=== PATIENT | male | born 1970 | race Caucasian/White ===

== ENCOUNTER 2021-06-27 17:53 | Emergency (ER) | payer SELFPAY ==
[~2021-06-27] VITALS: Ht 183 cm; Wt 84.0 kg
[2021-06-27 19:13] LABS: BASOPHILS # (AUTO) 0.1 10^3/uL (0.0-0.1); BASOPHILS % (AUTO) 1 % (0-10); EOSINOPHILS # (AUTO) 0.2 10^3/uL (0.0-0.3); EOSINOPHILS % (AUTO) 1 % (0-10); HEMATOCRIT 47 % (40-54); HEMOGLOBIN 15.6 g/dL (13.3-17.7); LYMPHOCYTES # (AUTO) 1.5 10^3/uL (1.0-4.0); LYMPHOCYTES % (AUTO) 10 % (12-44); MEAN CORPUSCULAR HEMOGLOBIN 32 pg (25-34); MEAN CORPUSCULAR HGB CONC 33 g/dL (32-36); MEAN CORPUSCULAR VOLUME 95 fL (80-99); MEAN PLATELET VOLUME 8.8 fL (9.0-12.2); MONOCYTES # (AUTO) 1.1 10^3/uL (0.0-1.0); MONOCYTES % (AUTO) 7 % (0-12); NEUTROPHILS # (AUTO) 12.5 10^3/uL (1.8-7.8); NEUTROPHILS % (AUTO) 81 % (42-75); PLATELET COUNT 251 10^3/uL (130-400); WHITE BLOOD COUNT 15.3 10^3/uL (4.3-11.0)
[2021-06-27] MEDS ORDERED: CEPH500T PO (19:15)
[2021-06-27] MEDS ORDERED: KETOROLAC 30 MG/ML VIAL IVP ONE (19:15)
[2021-06-27] MEDS ORDERED: cefTRIAXone 1 GM PRE-MIX 50 ML IV ONE (19:15)
--- NOTE | 2021-06-27 19:15 | ED Upper Extremity ---
General Chief Complaint: Upper Extremity Stated Complaint: R ARM SWELLING Nursing Triage Note: PT AMB TO FT 3 W C/O RIGHT FOREARM SWELLING/BURNING/REDNESS/PAIN SX LAST NIGHT. REPORTS HIS HAND FEELS LIKE PINS AND NEEDLES. A&OX4. Source: patient Exam Limitations: no limitations (BEV PEDRO APRN) History of Present Illness Date Seen by Provider: Jun 27, 2021 Time Seen by Provider: 19:10 Initial Comments To ER with reports of right forearm redness and pain that he noticed last night. No fevers or chills no known injury. He noticed this upon awakening this morning. 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 Onset: yesterday Severity: moderate Pain/Injury Location: right forearm Method of Injury: unknown Modifying Factors: Worse With Movement (BEV PEDRO APRN) Allergies and Home Medications Allergies Coded Allergies: Penicillins (Verified Allergy, Unknown, 06/27/21) Patient Home Medication List Home Medication List Reviewed: Yes (BEV PEDRO APRN) Cephalexin (Cephalexin) 500 Mg Tablet, 500 MG PO QID Prescribed by: BEV PEDRO on 06/27/211914 Review of Systems Constitutional: see HPI EENTM: see HPI Respiratory: no symptoms reported Cardiovascular: no symptoms reported Genitourinary: no symptoms reported Musculoskeletal: no symptoms reported Skin: no symptoms reported Psychiatric/Neurological: No Symptoms Reported (BEV PEDRO APRN) Past Wqwfyov-Ebaemx-Codcab Hx Patient Social History Tobacco Use?: Yes Tobacco type used: Cigarettes Smoking Status: Current Everyday Smoker Use of E-Cig and/or Vaping dev: No Substance use?: Yes Substance type: Marijuana Alcohol Use?: No (BEV PEDRO APRN) Immunizations Up To Date Influenza Vaccine Up-to-Date: No; Not Current First/Initial COVID19 Vaccinat: NONE Second COVID19 Vaccination Matteo: NONE Third COVID19 Vaccination Date: NONE COVID19 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 oz. kg; 25.00 BMI Method: General Appearance: WD/WN, no apparent distress HEENT: PERRL/EOMI, normal ENT inspection Respiratory: no respiratory distress, no accessory muscle use Gastrointestinal: normal bowel sounds, non tender Shoulder: normal inspection, non-tender Elbow/Forearm: Right (To the volar aspect of the mid right forearm is a 5 x 8 cm area of erythema and slight induration without fluctuance. To the center of this is a slightly darkened area. No fluctuance. That darkened area measures less than 1 cm in diameter. No necrosis at this point. There is lymphangitis that extends proximally up to the axilla. He denies any recent injections of the fresh track silva over the veins on the left arm would suggest otherwise.) Wrist: Yes normal inspection, Yes non-tender (BEV PEDRO APRN) Progress/Results/Core Measures Results/Orders Blood Pressure Mean: 103 Departure Impression Primary Impression: Cellulitis Additional Impression: Lymphangitis Disposition: 01 HOME, SELF-CARE Condition: Stable Departure-Patient Inst. Decision time for Depature: 19:13 (BEV PEDRO APRN) Patient Instructions: Cellulitis (Skin Infection), Adult (DC) Add. Discharge Instructions: 1. Return to ER for any fevers. Take the antibiotics as directed follow-up with your doctor as directed. If you do not have one a list has been provided for you. There is a [facility] in [place]. All discharge instructions reviewed with patient and/or family. Voiced under standing. Scripts Cephalexin (Cephalexin) 500 Mg Tablet 500 MG PO QID, #28 TAB 0 Refills Prov: BEV PEDRO APRN 06/27/21 ATTENDING PHYSICIAN NOTE: I WAS PHYSICALLY PRESENT ER PHYSICIAN WHEN THIS PATIENT WAS IN ER, BUT I WAS NOT INVOLVED IN ANY DECISION MAKING OR ANY CARE OF THIS PATIENT. (KIM FUENTES DO) BEV PEDRO APRN Jun 27, 2021 19:15 KIM FUENTES DO Jun 30, 2021 05:34
[2021-06-27 19:32] LABS: ALBUMIN 4.1 GM/DL (3.2-4.5); BILIRUBIN,TOTAL 0.6 MG/DL (0.1-1.0); CALCIUM 9.5 MG/DL (8.5-10.1); CREATININE SERUM 1.09 MG/DL (0.60-1.30); TOTAL PROTEIN 7.6 GM/DL (6.4-8.2)
[2021-06-27 20:10] VITALS: BP 132/82
[2021-06-27 20:16] LABS: ATYPICAL LYMPHOCYTES 1 %; EOSINOPHILS % (MANUAL) 1 %; LYMPHOCYTES % (MANUAL) 10 %; MONOCYTES % (MANUAL) 6 %; NEUTROPHILS % (MANUAL) 82 %; RBC MORPH NORMAL
== END 2021-06-27 20:10 | disposition home or self-care (01) ==
LOC: ER 17:56
DX: L03.113 Cellulitis of right upper limb (principal); F17.210 Nicotine dependence, cigarettes, uncomplicated
CPT/HCPCS: 36415; 80053; 85007; 85027; 86141

== ENCOUNTER 2021-08-30 22:14 | Emergency (ER) | payer SELFPAY ==
[~2021-08-30] VITALS: Ht 183 cm; Wt 84.0 kg
[~2021-08-30 22:14] MED LIST: CEPH500T PO
[2021-08-30] MEDS ORDERED: FAMOTIDINE 20MG/2ML IV (PEPCID) IV STA (22:36)
[2021-08-30] MEDS ORDERED: ONDANSETRON 4 MG/2 ML (SDV) Z0FRAN IVP ONE (22:45)
[2021-08-30] MEDS ORDERED: LACTATED RINGERS 1,000 ML IV ONE (22:45)
[2021-08-30] MEDS ORDERED: HYOSCYAMINE 0.125 MG (LEVSIN) TAB SL ONE (22:45)
[2021-08-30 22:55] LABS: BASOPHILS % (AUTO) 0 % (0-10); EOSINOPHILS # (AUTO) 0.4 10^3/uL (0.0-0.3); EOSINOPHILS % (AUTO) 3 % (0-10); HEMATOCRIT 47 % (40-54); HEMOGLOBIN 15.6 g/dL (13.3-17.7); LYMPHOCYTES # (AUTO) 2.2 10^3/uL (1.0-4.0); LYMPHOCYTES % (AUTO) 19 % (12-44); MEAN CORPUSCULAR HEMOGLOBIN 31 pg (25-34); MEAN CORPUSCULAR HGB CONC 34 g/dL (32-36); MEAN CORPUSCULAR VOLUME 92 fL (80-99); MEAN PLATELET VOLUME 9.2 fL (9.0-12.2); MONOCYTES # (AUTO) 1.4 10^3/uL (0.0-1.0); MONOCYTES % (AUTO) 12 % (0-12); NEUTROPHILS # (AUTO) 7.5 10^3/uL (1.8-7.8); NEUTROPHILS % (AUTO) 65 % (42-75); PLATELET COUNT 264 10^3/uL (130-400); WHITE BLOOD COUNT 11.6 10^3/uL (4.3-11.0)
[2021-08-30 23:05] LABS: ALBUMIN 4.5 GM/DL (3.2-4.5); POTASSIUM 3.4 MMOL/L (3.6-5.0)
[2021-08-30 23:06] LABS: CALCIUM 10.1 MG/DL (8.5-10.1)
[2021-08-30 23:08] LABS: TOTAL PROTEIN 7.5 GM/DL (6.4-8.2)
[2021-08-30 23:09] LABS: BILIRUBIN,TOTAL 0.7 MG/DL (0.1-1.0)
[2021-08-30 23:11] LABS: CREATININE SERUM 1.06 MG/DL (0.60-1.30)
--- NOTE | 2021-08-30 23:11 | ED Abdominal Pain ---
General Chief Complaint: Abdominal/GI Problems Stated Complaint: N/V, STOMACH CRAMPS Nursing Triage Note: c/o intermittant nausea x2 months, n/v/d, abd cramping x1 week Source of Information: Patient, Family Exam Limitations: No Limitations (KINGA EATON) History of Present Illness Date Seen by Provider: Aug 30, 2021 Time Seen by Provider: 22:29 Initial Comments Patient to the ER by private conveyance chief complaint of several months some intermittent indigestion and now last couple days she had progressively worsening intermittent cramping in his bilateral lower pelvis groins radiating to his testicles. He is having diarrhea and vomiting today. No fevers or chills. No shortness of air cough or sick contacts. He smokes about half a pack a day, last use of methamphetamines was 2 weeks ago and uses marijuana. He was having some abdominal cramping similar to this a few weeks ago and was taken by ambulance to [place] and was told he had some kind of a bacterial got infection but not given antibiotics nor was he set up for follow-up. Patient states he does not have a primary care doctor. Never had a colonoscopy. No known history of diverticulitis. He did have a history of a inguinal hernia repair was unsuccessful at [place]. No other abdominal surgeries. No blood in the stool. He did take some Pepto-Bismol without relief of symptoms. Last use of methamphetamine approximately 2 weeks ago. (KINGA EATON) Allergies and Home Medications Allergies Coded Allergies: Penicillins (Verified Allergy, Unknown, 06/27/21) Patient Home Medication List Home Medication List Reviewed: Yes (KINGA EATON) Cephalexin (Cephalexin) 500 Mg Tablet, 500 MG PO QID Prescribed by: BEV PEDRO on 06/27/211914 Hydrocodone/Acetaminophen (Hydrocodone-Acetamin 5-325 mg) 1 Each Tablet, 1 TAB PO Q6H PRN for PAIN-MODERATE (5-7) Prescribed by: DAMON FLOWERS on 08/31/21 162 Hyoscyamine Sulfate (Levsin-Sl) 0.125 Mg Tab.subl, 0.125 MG SL Q4H Prescribed by: BRISEIDA COVARRUBIAS on 08/31/212005 Ondansetron (Ondansetron Odt) 4 Mg Tab.rapdis, 4-8 MG PO Q6H PRN for NAUSEA/VOMITING Prescribed by: DAMON FLOWERS on 08/31/21 1627 Review of Systems Review of Systems Constitutional: No chills, No diaphoresis EENTM: No Blurred Vision, No Double Vision Respiratory: Denies Cough, Denies Shortness of Air Cardiovascular: Denies Chest Pain, Denies Lightheadedness Gastrointestinal: Abdominal Pain; Denies Constipated; Diarrhea Genitourinary: Denies Burning, Denies Discharge Musculoskeletal: No back pain, No joint swelling Skin: No pruritus, No rash Psychiatric/Neurological: Denies Depressed, Denies Headache (KINGA EATON) All Other Systems Reviewed Negative Unless Noted: Yes (KINGA EATON) Past Cganztc-Rvhkmm-Bwmuji Hx Patient Social History Tobacco Use?: Yes Tobacco type used: Cigarettes Substance use?: Yes Substance type: Marijuana Alcohol Use?: No Pt feels they are or have been: No (KINGA EATON) Immunizations Up To Date First/Initial COVID19 Vaccinat: NONE Second COVID19 Vaccination Matteo: NONE Third COVID19 Vaccination Date: NONE (KINGA EATON) Past Medical History Surgery/Hospitalization HX: t/a,appy, hernia, orthopedic, (KINGA EATON) Physical Exam Vital Signs Vital Signs - First Documented 08/30/21 08/31/21 22:20 01:52 Temp 36.6 Pulse 77 Resp 16 B/P (MAP) 124/93 (103) Pulse Ox 96 O2 Delivery Room Air (DAMON FLOWERS MD) Vital Signs Capillary Refill : Less Than 3 Seconds (KINGA EATON) Height/Weight/BMI Height: '" Weight: lbs. oz. kg; 25.00 BMI Method: General Appearance: WD/WN, no apparent distress HEENT: PERRL/EOMI, normal ENT inspection Neck: non-tender, full range of motion Respiratory: lungs clear, normal breath sounds, no respiratory distress, no accessory muscle use Cardiovascular: normal peripheral pulses, regular rate, rhythm, no edema Peripheral Pulses: 2+ Radial Pulses (R), 2+ Radial Pulses (L) Gastrointestinal: normal bowel sounds, soft, tenderness (All 4 quadrants to light touch) Extremities: non-tender, normal inspection, normal capillary refill Back: normal inspection, no CVA tenderness, no vertebral tenderness Neurologic/Psychiatric: alert, normal mood/affect, oriented x 3 Skin: normal color, warm/dry (KINGA EATON) Progress/Results/Core Measures Results/Orders Lab Results Laboratory Tests Test 08/30/21 22:41 Range/Units White Blood Count 11.6 H 4.3-11.0 10^3/uL Red Blood Count 5.04 4.30-5.52 10^6/uL Hemoglobin 15.6 13.3-17.7 g/dL Hematocrit 47 40-54 % Mean Corpuscular Volume 92 80-99 fL Mean Corpuscular Hemoglobin 31 25-34 pg Mean Corpuscular Hemoglobin Concent 34 32-36 g/dL Red Cell Distribution Width 13.2 10.0-14.5 % Platelet Count 264 130-400 10^3/uL Mean Platelet Volume 9.2 9.0-12.2 fL Immature Granulocyte % (Auto) 0 % Neutrophils (%) (Auto) 65 42-75 % Lymphocytes (%) (Auto) 19 12-44 % Monocytes (%) (Auto) 12 0-12 % Eosinophils (%) (Auto) 3 0-10 % Basophils (%) (Auto) 0 0-10 % Neutrophils # (Auto) 7.5 1.8-7.8 10^3/uL Lymphocytes # (Auto) 2.2 1.0-4.0 10^3/uL Monocytes # (Auto) 1.4 H 0.0-1.0 10^3/uL Eosinophils # (Auto) 0.4 H 0.0-0.3 10^3/uL Basophils # (Auto) 0.0 0.0-0.1 10^3/uL Immature Granulocyte # (Auto) 0.0 0.0-0.1 10^3/uL Sodium Level 140 135-145 MMOL/L Potassium Level 3.4 L 3.6-5.0 MMOL/L Chloride Level 102 98-107 MMOL/L Carbon Dioxide Level 28 21-32 MMOL/L Anion Gap 10 5-14 MMOL/L Blood Urea Nitrogen 18 7-18 MG/DL Creatinine 1.06 0.60-1.30 MG/DL Estimat Glomerular Filtration Rate 86 BUN/Creatinine Ratio 17 Glucose Level 109 H 70-105 MG/DL Calcium Level 10.1 8.5-10.1 MG/DL Corrected Calcium 9.7 8.5-10.1 MG/DL Total Bilirubin 0.7 0.1-1.0 MG/DL Aspartate Amino Transf (AST/SGOT) 29 5-34 U/L Alanine Aminotransferase (ALT/SGPT) 42 0-55 U/L Alkaline Phosphatase 77 40-136 U/L C-Reactive Protein High Sensitivity 0.41 0.00-0.50 MG/DL Total Protein 7.5 6.4-8.2 GM/DL Albumin 4.5 3.2-4.5 GM/DL Lipase 9 8-78 U/L (DAMON FLOWERS MD) Vital Signs/I&O 08/30/21 08/31/21 22:20 01:52 Temp 36.6 36.5 Pulse 77 68 Resp 16 18 B/P (MAP) 124/93 (103) 115/77 Pulse Ox 96 O2 Delivery Room Air Room Air 08/31/21 00:00 Intake Total 1000 ml Balance 1000 ml (DAMON FLOWERS MD) Blood Pressure Mean: 103 Progress Progress Note : Time: 00:39 Progress Note Levsin and IV antiacid did not seem to help. Dose of fentanyl has stopped his constant diarrhea and Zofran has helped with his nausea. CT reveals nonspecific enteritis/colitis. Based on his laboratory evidence it is likely viral. (KINGA EATON) Progress Note : Progress Note Nurse presented to me during shift that the pharmacy the medications were sent to is currently closed. I got into the chart to send the patient's medicines to [facility] (DAMON FLOWERS MD) Diagnostic Imaging Diagonstic Imaging: CT Plain Films/CT/US/NM/MRI: abdomen, pelvis Comments Minimally dilated small bowel as described above, possibly enteritis versus early or partial small bowel obstruction. Fluid in the colon through the level of the sigmoid colon, question a diarrheal illness. [facility], [place] NAME: TREY BASURTO Pallavi [facility] REC#: [id number] PT STATUS: DEP ER : 1970 PHYSICIAN: KINGA EATON MD ADMIT DATE: 08/30/21/ER Signed Date of Exam:03/26/22 CT ABDOMEN/PELVIS W EXAMINATION: CT abdomen and pelvis with intravenous contrast. TECHNIQUE: Multiple contiguous axial images were obtained through the abdomen and pelvis after the uneventful administration of intravenous contrast. All CT scans use one or more of the following dose optimizing techniques: automated exposure control, MA and/or KvP adjustment based on patient size and exam type or iterative reconstruction. HISTORY: Low abd pain COMPARISON: None available. FINDINGS: Limited views of the lower thorax are unremarkable. There are few tiny low attenuating liver lesions that are likely cysts but too small to characterize. There is no biliary ductal dilation. Gallbladder is normal. Pancreas is normal. Spleen is normal. Adrenal glands are normal. There are few tiny cysts in the left kidney. There is no hydronephrosis. Urinary bladder is normal. There are prominent fluid-filled loops of small bowel. No bowel wall thickening. The appendix is absent. There is a fat-containing right inguinal hernia. No free fluid or air. No abdominal or pelvic lymphadenopathy. Aorta is normal in caliber without aneurysm. There are no suspicious osseus lesions. IMPRESSION: 1. Prominent fluid-filled loops of small bowel, correlate for any evidence of gastroenteritis. There is no significant disagreement with the preliminary report. Dictated by: Dictated on workstation # [id number] Dict: 08/31/21 0643 Trans: 08/31/21 0942 ULICES [id number] Interpreted by: GENOVEVA GUERRERO MD Electronically signed by: GENOVEVA GUERRERO MD 08/31/21 0942 Reviewed: Reviewed by Me (KINGA EATON) Departure Impression Primary Impression: Enteritis Disposition: 01 HOME, SELF-CARE Condition: Stable Departure-Patient Inst. Decision time for Depature: 01:37 (KINGA EATON) Referrals: RISSA THOMPSON DO NO,LOCAL PHYSICIAN (PCP) Primary Care Physician Patient Instructions: Viral Gastroenteritis, Adult (DC), Diarrhea, Adult ED Add. Discharge Instructions: There is irritation of your small bowel and is most often is seen in the setting of a viral illness. Because you are having frequent recurrent bouts it is also possible you may have a small bowel obstruction that is coming and going. I would suggest you follow-up with Dr. Thompson by calling his office for an appointment next week. Zofran 1 to 2 tablets every 6 hours as needed for nausea or vomiting. Hydrocodone 1 tablet every 6 hours necessary for breakthrough pain. Tylenol and Motrin as necessary for pain. Antacids such as Tums, Maalox, Mylanta etc. as necessary for indigestion. Imodium 2 tablets followed by 1 tablet every 4 hours afterwards that you are still having loose, watery stools. Return to the ER for intractable symptoms such as intractable pain or dehydration. All discharge instructions reviewed with patient and/or family. Voiced understanding. Scripts Hydrocodone/Acetaminophen (Hydrocodone-Acetamin 5-325 mg) 1 Each Tablet 1 TAB PO Q6H PRN for PAIN-MODERATE (5-7), #12 TAB 0 Refills Prov: DAMON FLOWERS MD 08/31/21 Ondansetron (Ondansetron Odt) 4 Mg Tab.rapdis 4-8 MG PO Q6H PRN for NAUSEA/VOMITING, #20 TAB 0 Refills Prov: DAMON FLOWERS MD 08/31/21 Work/School Note: Work Release Form Date Seen in the Emergency Department: Aug 31, 2021 Return to Work: Sep 02, 2021 Restrictions: No Restrictions Copy Copies To 1: RISSA THOMPSON TITUS J Aug 30, 2021 23:11 DAMON FLOWERS MD Aug 31, 2021 16:28
[2021-08-30] MEDS ORDERED: fentaNYL INJ 100 MCG/2 ML AMP IVP ONE (23:15)
[2021-08-30] MEDS ORDERED: NS 100 ML (IVPB) BAG IV ONE (23:45)
[2021-08-30] MEDS ORDERED: CATHETER FLUSH 10 ML SYR IV PRN (23:45)
[2021-08-30] MEDS ORDERED: IOHEXOL 350 MG/ML 100 ML (OMNIPAQUE 350) VIAL IV ONE (23:45)
[2021-08-31] MEDS ORDERED: ONDA4TAB11 PO ×2 (01:39→16:27)
[2021-08-31] MEDS ORDERED: ACHD5005 PO ×2 (01:39→16:27)
[2021-08-31] MEDS ORDERED: RX-ONDANSETRON 4 MG ODT (ZOFRAN) PPK #4 PO STA (01:46)
[2021-08-31 01:52] VITALS: BP 115/77
--- NOTE | 2021-08-31 06:54 | Diagnostic Imaging Report ---
EXAMINATION: CT abdomen and pelvis with intravenous contrast. TECHNIQUE: Multiple contiguous axial images were obtained through the abdomen and pelvis after the uneventful administration of intravenous contrast. All CT scans use one or more of the following dose optimizing techniques: automated exposure control, MA and/or KvP adjustment based on patient size and exam type or iterative reconstruction. HISTORY: Low abd pain COMPARISON: None available. FINDINGS: Limited views of the lower thorax are unremarkable. There are few tiny low attenuating liver lesions that are likely cysts but too small to characterize. There is no biliary ductal dilation. Gallbladder is normal. Pancreas is normal. Spleen is normal. Adrenal glands are normal. There are few tiny cysts in the left kidney. There is no hydronephrosis. Urinary bladder is normal. There are prominent fluid-filled loops of small bowel. No bowel wall thickening. The appendix is absent. There is a fat-containing right inguinal hernia. No free fluid or air. No abdominal or pelvic lymphadenopathy. Aorta is normal in caliber without aneurysm. There are no suspicious osseus lesions. IMPRESSION: 1. Prominent fluid-filled loops of small bowel, correlate for any evidence of gastroenteritis. There is no significant disagreement with the preliminary report. Dictated by: Dictated on workstation # [id number]
[2021-08-31] MEDS ORDERED: HYOS0.1283 SL (20:06)
== END 2021-08-31 01:55 | disposition home or self-care (01) ==
LOC: EDUNIT# 22:14 → ER 22:16
DX: K52.9 Noninfective gastroenteritis and colitis, unspecified (principal); F17.210 Nicotine dependence, cigarettes, uncomplicated
CPT/HCPCS: 36415; 74177; 80053; 83690; 85025; 86141

== ENCOUNTER 2021-08-31 17:45 | Emergency (ER) | payer SELFPAY ==
[~2021-08-31] VITALS: Ht 182.2 cm; Wt 84.0 kg
[~2021-08-31 17:45] MED LIST changes: +ACHD5005 PO; +ONDA4TAB11 PO
[2021-08-31] MEDS ORDERED: FAMOTIDINE 20 MG (PEPCID) TABLET PO STA (18:17)
[2021-08-31] MEDS ORDERED: HYOSCYAMINE 0.125 MG (LEVSIN) TAB SL STA (18:17)
[2021-08-31] MEDS ORDERED: HYOSCYAMINE 0.125 MG (LEVSIN) TAB ONE (18:31)
--- NOTE | 2021-08-31 20:03 | ED GI ---
General Chief Complaint: Abdominal/GI Problems Stated Complaint: ABD PAIN Nursing Triage Note: TO ED PER W/C WITH C/O ABD PAIN. WAS SEEN IN ED LAST NIGHT AND DX WITH GASTRITIS . PATIENT CALLED EARLIER BECAUSE HE WANTED PAIN MED AND NAUSEA RX TRANSFER TO [facility] PATIENT REPORTS DID NOT PICK IT UP CAME HERE INSTEAD. History of Present Illness Date Seen by Provider: Aug 31, 2021 Time Seen by Provider: 18:25 Initial Comments Patient seen and evaluated. He reports epigastric pain that has been present for the last 2 to 3 days. In the past he would have symptoms like this about once a month, however now it is becoming weekly to daily. He was seen in this emergency department yesterday for similar symptoms and had a full work-up including lab and CTs which were all normal. He was given prescriptions however he has not picked those up. Timing/Duration: Intermittent Severity/Quality: Moderate Location: Epigastric Associated Symptoms: Denies Symptoms Allergies and Home Medications Allergies Coded Allergies: Penicillins (Verified Allergy, Unknown, 06/27/21) Patient Home Medication List Home Medication List Reviewed: Yes Cephalexin (Cephalexin) 500 Mg Tablet, 500 MG PO QID Prescribed by: BEV PEDRO on 06/27/211914 Hydrocodone/Acetaminophen (Hydrocodone-Acetamin 5-325 mg) 1 Each Tablet, 1 TAB PO Q6H PRN for PAIN-MODERATE (5-7) Prescribed by: DAMON FLOWERS on 08/31/211626 Hyoscyamine Sulfate (Levsin-Sl) 0.125 Mg Tab.subl, 0.125 MG SL Q4H Prescribed by: BRISEIDA COVARRUBIAS on 08/31/212005 Ondansetron (Ondansetron Odt) 4 Mg Tab.rapdis, 4-8 MG PO Q6H PRN for NAUSEA/VOMITING Prescribed by: DAMON FLOWERS on 08/31/211626 Review of Systems Review of Systems Constitutional: no symptoms reported, see HPI Gastrointestinal: See HPI, Abdominal Pain, Poor Appetite All Other Systems Reviewed Negative Unless Noted: Yes Past Ktjrtdt-Jgfcqx-Wmikah Hx Patient Social History Tobacco Use?: Yes Smoking Status: Current Everyday Smoker Substance use?: Yes Substance type: Marijuana Alcohol Use?: No Immunizations Up To Date First/Initial COVID19 Vaccinat: NONE Second COVID19 Vaccination Matteo: NONE Third COVID19 Vaccination Date: NONE Past Medical History Surgery/Hospitalization HX: t/a,appy, hernia, orthopedic, Family Medical History Reviewed Nursing Family Hx Physical Exam Vital Signs Vital Signs - First Documented 08/31/21 18:01 Temp 36.5 Pulse 88 Resp 18 B/P (MAP) 126/87 (100) Pulse Ox 97 O2 Delivery Room Air Capillary Refill : Less Than 3 Seconds Height/Weight/BMI Height: '" Weight: lbs. oz. kg; 25.00 BMI Method: General Appearance: WD/WN, no apparent distress Respiratory: chest non-tender, lungs clear, normal breath sounds Cardiovascular: normal peripheral pulses, regular rate, rhythm Gastrointestinal: normal bowel sounds, soft; No distended, No rebound; t enderness (Generalized); No mass Extremities: normal range of motion, non-tender, normal inspection, normal capillary refill Neurologic/Psychiatric: no motor/sensory deficits, alert, normal mood/affect, oriented x 3 Skin: normal color, warm/dry Progress/Results/Core Measures Results/Orders My Orders Orders - BRISEIDA COVARRUBIAS Famotidine Tablet (Pepcid Tablet) (08/31/21 18:17) Hyoscyamine Sl Tablet (Levsin Sl Tablet) (08/31/21 18:17) Hyoscyamine Sl Tablet (Levsin Sl Tablet) (08/31/21 18:31) Rx-Hyoscyamine Tab (Rx-Levsin Sl) (08/31/21 20:04) Vital Signs/I&O 08/31/21 08/31/21 18:01 20:16 Temp 36.5 36.5 Pulse 88 88 Resp 18 16 B/P (MAP) 126/87 (100) 122/85 Pulse Ox 97 92 O2 Delivery Room Air Room Air Blood Pressure Mean: 100 Progress Progress Note : Time: 18:25 Progress Note Patient seen and evaluated, will give Levsin and Pepcid and reevaluate. 1930 patient reports improvement in symptoms after medication. Discharge instructions and return precautions reviewed with the patient. Departure Impression Primary Impression: Enteritis Disposition: HOME, SELF-CARE Condition: Improved Departure-Patient Inst. Decision time for Depature: 19:30 Referrals: NO,LOCAL PHYSICIAN (PCP/Family) Primary Care Physician Patient Instructions: Viral Gastroenteritis, Adult (DC) Add. Discharge Instructions: Holmes diet as directed. Continue to take medications as prescribed. Schedule with [facility] to establish care. Consider scheduling with a surgeon to have a colonoscopy and EGD or capsule study. Return to the emergency department for new, urgent healthcare needs. Obtain the Pepcid 10 mg over the counter, take 1 twice daily. Obtain your prescriptions that were sent to the pharmacy yesterday. All discharge instructions reviewed with patient and/or family. Voiced understanding. Scripts Hyoscyamine Sulfate (Levsin-Sl) 0.125 Mg Tab.subl 0.125 MG SL Q4H, #20 TAB 0 Refills Prov: BRISEIDA COVARRUBIAS 08/31/21 BRISEIDA COVARRUBIAS Aug 31, 2021 20:03
[2021-08-31] MEDS ORDERED: RX-HYOSCYAMINE 0.125 MG SL (LEVSIN) PPK#6 SL STA (20:04)
[2021-08-31] MEDS ORDERED: HYOS0.1283 SL (20:06)
[2021-08-31 20:16] VITALS: BP 122/85
== END 2021-08-31 20:16 | disposition home or self-care (01) ==
LOC: EDUNIT# 17:45 → ER 17:46
DX: K52.9 Noninfective gastroenteritis and colitis, unspecified (principal); F17.290 Nicotine dependence, other tobacco product, uncomplicated
CPT/HCPCS: 99283

== ENCOUNTER 2021-12-26 17:51 | Emergency (ER) | payer SELFPAY ==
[~2021-12-26] VITALS: Ht 182.8 cm; Wt 83.9 kg
[~2021-12-26 17:51] MED LIST changes: +HYOS0.1283 SL
[2021-12-26 18:04] VITALS: BP 118/65
--- NOTE | 2021-12-26 18:31 | ED Integumentary General ---
General Chief Complaint: Skin/Wound Problems Stated Complaint: BILATERAL ARM SORES Nursing Triage Note: PT AMBULATORY TO ROOM. PT HAS SORE TO LEFT FOREARM AND SORES TO BILAT HANDS. PT STATES HE DOES NOT KNOW WHERE THEY CAME FROM. PT STATES HE NOTICED THEM 2 WEEKS AGO, TOOK SOME ANTIBIOTICS FROM A FAMILY MEMBER, BUT NOTICED THE SORE TO THE LEFT FOREARMS BECAME RED, HOT, AND SWOLLEN TODAY Source: patient Exam Limitations: no limitations History of Present Illness Date Seen by Provider: Dec 26, 2021 Time Seen by Provider: 18:17 Initial Comments Patient is a 51-year-old male who presents to the emergency department with a chief complaint of multiple "sores" to his bilateral forearms. 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 He noticed about a week ago a wound on his left forearm. He states it started draining in the last couple of days and subsequent to that multiple other areas on his hands and forearm have developed. He has never had anything like this before. He does not know if he has a history of staph infection. He is not a diabetic. He denies any fevers or chills. The wounds are not itchy. No other complaints of recent illness or injury. He does state that the wound has gotten larger, more tender and his forearm is little more swollen today than it has been in recent days. Timing/Duration: week, getting worse Severity: moderate Location: hands, extremities Possible Cause: no cause identified Associated Symptoms: edema Allergies and Home Medications Allergies Coded Allergies: Penicillins (Verified Allergy, Unknown, 06/27/21) Patient Home Medication List Home Medication List Reviewed: Yes Cephalexin (Cephalexin) 500 Mg Tablet, 500 MG PO QID Prescribed by: BEV PEDRO on 06/27/211914 Hydrocodone/Acetaminophen (Hydrocodone-Acetamin 5-325 mg) 1 Each Tablet, 1 TAB PO Q6H PRN for PAIN-MODERATE (5-7) Prescribed by: DAMON FLOWERS on 08/31/211626 Hyoscyamine Sulfate (Levsin-Sl) 0.125 Mg Tab.subl, 0.125 MG SL Q4H Prescribed by: BRISEIDA COVARRUBIAS on 08/31/212005 Ondansetron (Ondansetron Odt) 4 Mg Tab.rapdis, 4-8 MG PO Q6H PRN for NAUSEA/VOMITING Prescribed by: DAMON FLOWERS on 08/31/21 1627 Review of Systems Review of Systems Constitutional: see HPI EENTM: no symptoms reported Respiratory: no symptoms reported Cardiovascular: no symptoms reported Gastrointestinal: no symptoms reported Genitourinary: no symptoms reported Musculoskeletal: other (left forearm swelling) Skin: other (wounds to bilat forearms and hands) Psychiatric/Neurological: No Symptoms Reported All Other Systems Reviewed Negative Unless Noted: Yes Past [id number] Hx Immunizations Up To Date First/Initial COVID19 Vaccinat: NONE Second COVID19 Vaccination Matteo: NONE Third COVID19 Vaccination Date: NONE Past Medical History Surgery/Hospitalization HX: t/a,appy, hernia, orthopedic, Physical Exam Vital Signs Vital Signs - First Documented 12/26/21 18:04 Temp 36.8 Pulse 77 Resp 20 B/P (MAP) 118/65 (82) Pulse Ox 98 Capillary Refill : General Appearance: WD/WN, no apparent distress Cardiovascular: regular rate, rhythm Respiratory: lungs clear, normal breath sounds, no respiratory distress, no accessory muscle use Extremities: normal range of motion, normal capillary refill, other (tenderness and swelling left dorasal forearm. open wound 0.5cm with purulent drainage. tender to touch. surrounding erythema and warmth. ) Neurologic/Psychiatric: alert, normal mood/affect, oriented x 3 Skin: other (multiple superficial ulcerations to bilateral forearms and hands. less than 0.5cm. none are as tender as the largest one left mid forearm. No other signs of cellulitis to the bilateral hands.) Progress/Results/Core Measures Results/Orders My Orders Orders - RICARDO BASSETT MD Wound Culture (12/26/21 18:24) Vital Signs/I&O 12/26/21 18:04 Temp 36.8 Pulse 77 Resp 20 B/P (MAP) 118/65 (82) Pulse Ox 98 Blood Pressure Mean: 82 Progress Progress Note : Time: 18:28 Progress Note Patient is counseled on wound care. Advised to use gentle soap and water to keep all of the wounds clean. Will provide him with a prescription for Bactroban ointment to place on all the open wounds and shallow wounds. Also advised him to keep the largest wound clean dry and covered especially while he is working. I will give him some Bactrim DS for 10 days. A wound culture was obtained. Return precautions provided. He verbalized understanding. All questions are sought and answered. Departure Impression Primary Impression: Cellulitis and abscess of upper extremity Disposition: 01 HOME, SELF-CARE Condition: Stable Departure-Patient Inst. Decision time for Depature: 18:29 Referrals: [facility]/FRANCISCO JAUREGUI,LOCAL PHYSICIAN (PCP) Primary Care Physician Patient Instructions: Cellulitis (Skin Infection), Adult ED Add. Discharge Instructions: Keep the wounds clean and dry, wash with gentle soap and water at least twice a day. Keep the largest one covered with a dry gauze bandage. Use the Bactroban/mupirocin ointment, a small amount to all of the wound areas twice daily for 1 week. Take the antibiotics, Bactrim DS 1 pill twice a day for 10 days. You need to drink lots of water while taking the Bactrim. You can take either over the counter extra strngth tylenol or Ibuprofen (3 pills = 600mg) every 6 hours with food as needed for pain. If you develop worsening swelling, pain, redness or fever after having taken the antibiotics for 2 days, please either follow-up with [facility] or come back to the emergency room for reevaluation. Scripts Sulfamethoxazole/Trimethoprim (Bactrim Ds Tablet) 1 Each Tablet 1 EACH PO BID for 10 Days, #20 TAB Prov: RICARDO BASSETT MD 12/26/21 Mupirocin (Mupirocin) 2 % Oint...g. 22 GM TP BID for 7 Days, #1 EA Prov: RICARDO BASSETT MD 12/26/21 RICARDO BASSETT MD Dec 26, 2021 18:31
[2021-12-26] MEDS ORDERED: SULF1TAB38 PO (18:32)
[2021-12-26] MEDS ORDERED: MUPI22OI2 TP (18:32)
== END 2021-12-26 18:45 | disposition home or self-care (01) ==
LOC: EDUNIT# 17:51 → ER 17:52
DX: L03.114 Cellulitis of left upper limb (principal); L03.113 Cellulitis of right upper limb; L02.512 Cutaneous abscess of left hand; L02.511 Cutaneous abscess of right hand; Z28.310 Unvaccinated for COVID-19
CPT/HCPCS: 87070; 87077; 87205